=== PATIENT | male | born 1965 | race Caucasian/White ===

== ENCOUNTER 2017-07-21 11:56 | Outpatient (CLI) | payer OTHER ==
--- NOTE | 2017-07-21 13:08 | Diagnostic Imaging Report ---
ALEX JUAREZ [facility] [address] [facility] [address] [address] Report Submission Date: Jul 21, 2017 12:42:24 PM SOUND CUTTER Patient Study Name: JACEY HOLMAN Date: Jul 21, 2017 12:07:59 PM SOUND CUTTER Modality Type: CR\DX Gender: M Description: LOWER EXTREMITY : 61 Institution: [facility] Physician: ALEX JUAREZ Examination: Plain film tibia/fibula History: Trauma Comparison exams: None available Findings: 5 views of the tibia fibula demonstrates normal cortical margins. No evidence for fracture line. Knee and ankle articular degenerative changes. No soft tissue abnormality. Impression: Articular degenerative changes. No acute osseous abnormality. Electronically signed on Jul 21, 2017 12:42:24 PM SOUND CUTTER by: Jose Guadalupe CORNELL
== END 2017-07-21 12:00 ==
LOC: RAD 11:56
PROVIDERS: ATTEND Family Medicine
DX: M25.572 Pain in left ankle and joints of left foot (principal)
CPT/HCPCS: 73590

== ENCOUNTER 2017-07-28 09:11 | Outpatient (CLI) | payer OTHER ==
--- NOTE | 2017-07-28 09:36 | Diagnostic Imaging Report ---
[facility] [address] [facility].[address] [address] Report Submission Date: Jul 28, 2017 9:29:32 AM CUPOLA OPERATOR Patient Study Name: JACEY HOLMAN Date: Jul 28, 2017 9:17:53 AM CUPOLA OPERATOR Modality Type: CR Gender: M Description: LOWER EXTREMITY : 61 Institution: [facility] Physician: ALEX JUAREZ - GEORGE Examination: Plain film ankle History: Injury Findings: 3 views of the ankle demonstrates normal cortical margins. No fracture or dislocation. Talar dome is intact. Inferior calcaneal spur. No soft tissue swelling. No joint effusion. Impression: No acute osseous process. Electronically signed on Jul 28, 2017 9:29:32 AM CUPOLA OPERATOR by: Jose Guadalupe CORNELL
== END 2017-07-28 09:12 ==
LOC: RAD 09:11
PROVIDERS: ATTEND Family Medicine
DX: M25.572 Pain in left ankle and joints of left foot (principal)
CPT/HCPCS: 73610